=== PATIENT | female | born 1960 | race Caucasian/White ===

== ENCOUNTER 2022-05-15 04:36 | Day surgery (SDC) | payer BC ==
[2022-05-11 17:35] VITALS: BMI 30.4
[2022-05-15] MEDS ORDERED: BUPIVACAINE HCL/PF 0.5% (5MG/ML) 10 ML VIAL ONE (07:42)
[2022-05-15] MEDS ORDERED: TRIAMCINOLONE ACET 40MG/1ML VIAL ONE (07:42)
[2022-05-15] MEDS ORDERED: LIDOCAINE HCL/PF 1% SDV 5ML VIAL ONE (07:42)
[2022-05-15] MEDS ORDERED: BUPIVACAINE HCL/PF 0.75% 10 ML VIAL ONE (12:05)
[2022-05-15] MEDS ORDERED: LIDOCAINE HCL 1% PRESERVATIVE FREE - 30ML VIAL IJ ONE (12:48)
[2022-05-15] MEDS ORDERED: TRIAMCINOLONE ACET 40MG/1ML VIAL IM ONE (12:48)
[2022-05-15] MEDS ORDERED: BUPIVACAINE HCL/PF 0.5% (5MG/ML) 10 ML VIAL IJ ONE (12:49)
[2022-05-15] MEDS ORDERED: IOHEXOL 180 MG/1 ML ML IJ ONE (12:49)
[2022-05-15 14:20] VITALS: BP 115/68; PULSE 76; RESP 20; TEMP 97.5
== END 2022-05-15 14:35 | disposition home or self-care (01) ==
LOC: JASU-SURG 04:36
PROVIDERS: ATTEND Pain Medicine Pain Medicine
PROC: 3E0U3BZ Introduction of Anesthetic Agent into Joints, Percutaneous Approach (ICD-10-PCS; 2022-05-15)
PROC: 3E0U33Z Introduction of Anti-inflammatory into Joints, Percutaneous Approach (ICD-10-PCS; principal; 2022-05-15 12:00)
DX: M53.3 Sacrococcygeal disorders, not elsewhere classified (principal)
CPT/HCPCS: 76000-TC-FY; C9803-CS; U0003; U0005

== ENCOUNTER 2024-03-26 04:33 | Day surgery (SDC) | payer BC ==
[2024-03-25 08:45] VITALS: BMI 34.7
[2024-03-26 12:11] VITALS: TEMP 98.1
[2024-03-26 12:46] VITALS: RESP 16
[2024-03-26 12:48] VITALS: BP 118/51; PULSE 54
== END 2024-03-26 12:54 | disposition home or self-care (01) ==
LOC: JASU-ENDO 04:33
PROVIDERS: ATTEND Internal Medicine Gastroenterology
PROC: 0DJD8ZZ Inspection of Lower Intestinal Tract, Via Natural or Artificial Opening Endoscopic (ICD-10-PCS; principal; 2024-03-26 09:30)
DX: Z12.11 Encounter for screening for malignant neoplasm of colon (principal)

== ENCOUNTER 2024-05-29 05:29 | Day surgery (SDC) | payer BC ==
[2024-05-28 15:07] VITALS: BMI 34.1
[2024-05-29] MEDS ORDERED: SODIUM BICARBONATE 8.4% 50 MEQ/50 ML DISP.SYRIN ONE (10:46)
[2024-05-29] MEDS ORDERED: LIDOCAINE HCL 2% JELLY 11 ML TP ONE (10:48)
[2024-05-29] MEDS ORDERED: LIDOCAINE HCL 1%, 10 MG/ML (20ML VIAL) ONE (10:48)
[2024-05-29] MEDS ORDERED: HEPARIN NA (PORCINE) 5,000 UNITS/ML 1ML VIAL ONE (10:48)
[2024-05-29] MEDS ORDERED: oxyCODONE HCL 5 MG TABLET PO PRN ×2 (12:04→13:35)
[2024-05-29] MEDS ORDERED: ONDANSETRON 4 MG/2 ML VIAL IVPUSH PRN (12:04)
[2024-05-29] MEDS ORDERED: ACETAMINOPHEN 325 MG TABLET (FP) PO PRN (12:04)
[2024-05-29] MEDS ORDERED: LACTATED RINGERS SOLUTION 1,000 ML IV SCH ×2 (12:15→13:45)
[2024-05-29] MEDS ORDERED: LIDOCAINE HCL/PF 2% SDV 5ML VIAL ONE (12:19)
[2024-05-29] MEDS ORDERED: MIDAZOLAM HCL 2 MG/2 ML SINGLE DOSE VIAL ONE (12:20)
[2024-05-29] MEDS ORDERED: PROPOFOL 20 ML ONE (12:20)
[2024-05-29] MEDS: ceFAZolin SODIUM 1 GM VIAL IVPB ONE (12:48)
[2024-05-29] MEDS ORDERED: ceFAZolin SODIUM 1 GM VIAL ONE (12:58)
[2024-05-29] MEDS ORDERED: DEXAMETHASONE SOD PHOSPHATE 4 MG/1 ML VIAL ONE (12:58)
[2024-05-29] MEDS ORDERED: KETOROLAC TROMETHAMINE 30 MG/1 ML VIAL ONE (13:19)
[2024-05-29] MEDS: ACETAMINOPHEN INJECTION 100 ML ONE (13:56)
[2024-05-29] MEDS: ACETAMINOPHEN 1000 MG/100 ML BAG IVPB ONE (13:56)
[2024-05-29 15:29] VITALS: RESP 20; TEMP 96.9
[2024-05-29 16:14] VITALS: BP 127/69; PULSE 59
== END 2024-05-29 15:40 | disposition home or self-care (01) ==
LOC: JASU-SURG 05:29
PROVIDERS: ATTEND Urology
PROC: 0T7B8ZZ Dilation of Bladder, Via Natural or Artificial Opening Endoscopic (ICD-10-PCS; principal; 2024-05-29 12:00)
DX: N30.10 Interstitial cystitis (chronic) without hematuria (principal)
CPT/HCPCS: 94760; J0131; J1644